=== PATIENT | male | born 1980 | race Caucasian/White ===

== ENCOUNTER 2019-10-05 14:56 | Emergency (ER) | payer SELFPAY ==
[2019-10-05] MEDS ORDERED: NORMAL SALINE 1000 ML 1,000 ML IV ONE ×2 (15:38→17:51)
[2019-10-05] MEDS ORDERED: ONDANSETRON HCL INJ/PF 4 MG/2 ML SDV IV ONE (15:38)
[2019-10-05] MEDS ORDERED: METOCLOPRAMIDE HCL ORAL SOLN 10 MG/10 ML UDCUP PO ONE (15:39)
[2019-10-05] MEDS ORDERED: MAG HYDROX/AL HYDROX/SIMETH SUSP 30 ML UDCUP PO ONE (15:39)
[2019-10-05] MEDS ORDERED: LIDOCAINE 2% VISCOUS SOLN 20 ML UDCUP PO ONE (15:39)
--- NOTE | 2019-10-05 15:39 | ER Document Report ---
ED Medical Screen (RME) - General Chief Complaint: Abdominal Pain Stated Complaint: ABDOMINAL PAIN Time Seen by Provider: 10/05/19 15:32 Notes: Patient is a 39-year-old male who presents emergency department with a chief complaint of epigastric pain. Patient reports he has had severe epigastric pain for the past few days. Patient reports every time he attempts to drink he does make himself vomit as this did provide some brief relief. Patient reports he attempted to go to [facility] today for detox but they sent him over here for medical clearance. They are holding a bed for him. Patient reports he has been drinking about 1/5 of liquor daily for the past few months. Patient reports his last drink was on Saturday. Patient reports he also has been using meth. Patient reports his last use was which at this point he did smoke it. Patient reports he does have a history of IV drug use which was about 1 month ago and when she injected meth. Patient denies fever. Patient reports unable to keep any liquids down due to the severe pain. Past Medical History - Social History Frequency of alcohol use: Heavy Drug Abuse: Marijuana Physical Exam - Abdominal Tenderness: Tender - epigastric tenderness Course - Re-evaluation Re-evalutation: 10/05/19 15:38 I have greeted and performed a rapid initial assessment of this patient. A comprehensive ED assessment and evaluation of the patient, analysis of test results and completion of the medical decision making process will be conducted by additional ED providers.
[2019-10-05 16:16] LABS: APPEARANCE,URINE CLOUDY; BILIRUBIN,URINE SMALL (NEGATIVE); COLOR,URINE AMBER; GLUCOSE, URINE NEGATIVE (NEGATIVE); KETONES,URINE NEGATIVE (NEGATIVE); LEUKOCYTE ESTERASE,URINE NEGATIVE (NEGATIVE); NITRITE,URINE NEGATIVE (NEGATIVE); PROTEIN,URINE 100 mg/dL (NEGATIVE); URINE SPECIFIC GRAVITY 1.026
--- NOTE | 2019-10-05 16:17 | ER Document Report ---
ED General - General Chief Complaint: Abdominal Pain Stated Complaint: ABDOMINAL PAIN Time Seen by Provider: 10/05/19 15:32 - HPI Notes: Patient is a 39-year-old male with a longstanding history of substance abuse, who presents to the emergency department for evaluation of abdominal pain, nausea, vomiting. He states that he is trying to come off of alcohol and crystal meth. He states his last use of meth was on , he was injecting. He states his last alcohol was on Saturday. He was drinking heavily for several months. He states he has a pain in his epigastrium that he describes as "breath taking." He states he is not keeping down any fluids, has watery emesis just after ingesting any sort of fluids. He does not remember his last bowel movement. He states he is urinating, but not as much as he believes he should be. He is awaiting an inpatient bed at [facility], states they are holding a bed for him currently. He denies any suicidal or homicidal ideation. He denies any visual or auditory hallucination. He has no history of seizures from alcohol withdrawal. - Related Data Allergies/Adverse Reactions: amoxicillin Allergy (Verified 10/05/19 16:00) Penicillins Allergy (Verified 10/05/19 16:00) Past Medical History - General Information source: Patient - Social History Smoking Status: Current Every Day Smoker Frequency of alcohol use: Heavy Drug Abuse: Marijuana, Methamphetamine Family History: Reviewed & Not Pertinent Patient has suicidal ideation: No Patient has homicidal ideation: No - Medical History Medical History: Other - History of blood transfusion status post right wrist laceration Review of Systems - Review of Systems Constitutional: No symptoms reported EENT: No symptoms reported Cardiovascular: No symptoms reported Respiratory: No symptoms reported Gastrointestinal: See HPI Genitourinary: No symptoms reported Musculoskeletal: No symptoms reported Skin: No symptoms reported Neurological/Psychological: No symptoms reported Physical Exam - Vital signs Vitals: Temp Pulse Resp BP Pulse Ox 97.9 F 84 16 138/94 H 98 10/05/19 16:12 10/05/19 16:12 10/05/19 16:12 10/05/19 16:12 10/05/19 16:12 - Notes Notes: This is a 39-year-old male who appears much older than his stated age, in no acute distress. Vital signs reviewed, please refer to chart. Head is normocephalic, atraumatic. Pupils equal round, reactive to light. Neck is supple without meningismus. Heart is regular rate and rhythm. Lungs are clear to auscultation bilaterally. Abdomen is soft, mildly tender in the epigastrium without rebound or guarding, normoactive bowel sounds throughout. Extremities without cyanosis, clubbing. Posterior calves are nontender. Peripheral pulses are equal. Skin is warm and dry. Patient is awake, alert, neurological exam is nonfocal. Course - Re-evaluation Re-evalutation: 10/05/19 16:16 Patient presents emergency department for evaluation. He is trying to come off of alcohol and methamphetamines. At this point he is several days since his last drink. He is not having any hallucinations, no tremor, no other significant disturbances that I can appreciate at this time. We will treat him symptomatically, obtain laboratory investigations for medical clearance. We will continue to monitor. 10/05/19 21:48 Patient's laboratory investigations came back and he was continuing to have symptoms. He was given IV Phenergan with significant relief. At this point, patient's laboratory vesication's are still abnormal, likely from dehydration, but have improved significantly. The patient feels well enough to be discharged back to [place]. I will send him home with some Zofran. I explained to him that his labs would need to be rechecked, [facility]. Any worsening of his symptoms should prompt him to return immediately. He voiced understanding of his discharge. - Vital Signs Vital signs: Temp Pulse Resp BP Pulse Ox 98.9 F 77 18 136/64 H 99 10/05/19 21:08 10/05/19 21:08 10/05/19 21:08 10/05/19 21:08 10/05/19 21:08 - Laboratory Result Diagrams: 10/05/19 16:35 10/05/19 19:43 Laboratory results interpreted by me: 10/05/19 10/05/19 10/05/19 15:57 16:35 19:43 Sodium 133.7 L 134.4 L Chloride 89 L 94 L BUN 40 H 39 H Creatinine 2.33 H 1.87 H Est GFR ( Amer) 38 L 49 L Est GFR (MDRD) Non-Af 31 L 40 L Calcium 11.0 H Total Protein 9.5 H Albumin 5.7 H Urine Protein 100 H Urine Bilirubin SMALL H Urine Urobilinogen 2.0 H Discharge - Discharge Clinical Impression: Dehydration, Abnormal renal function Nausea and vomiting Qualifiers: Vomiting type: unspecified Vomiting Intractability: non-intractable Qualified Code(s): R11.2 - Nausea with vomiting, unspecified Condition: Stable Disposition: OTHER Instructions: Abdominal Pain ([facility]), Dehydration ([facility]), Kidney Function Abnormality ([facility]), Vomiting ([facility]) Additional Instructions: Stay hydrated with small, frequent sips of fluids. Zofran as needed for nausea. Your kidney function was abnormal, likely secondary to dehydration. Please have this checked in follow-up. If you develop increased pain, or any other new or concerning symptoms, please return immediately to the emergency department for evaluation.
[2019-10-05 16:37] LABS: URINE BARBITURATES SCREEN NEGATIVE; URINE BENZODIAZEPINES SCREEN NEGATIVE; URINE COCAINE SCREEN NEGATIVE; URINE METHADONE SCREEN NEGATIVE; URINE PHENCYCLIDINE SCREEN NEGATIVE
[2019-10-05 16:46] LABS: URINE MARIJUANA (THC) SCREEN UNCONFIRMED POSITIVE
[2019-10-05 16:57] LABS: ABSOLUTE BASOPHILS # (AUTO) 0.1 10^3/uL (0.0-0.2); ABSOLUTE LYMPHOCYTES (AUTO) 1.7 10^3/uL (0.5-4.7); ABSOLUTE NEUT (AUTO) 6.5 10^3/uL (1.7-8.2); BASOPHILS % (AUTO) 0.5 % (0-2); EOSINOPHILS % (AUTO) 0.1 % (0-6); HEMATOCRIT 46.2 % (37.9-51.0); HEMOGLOBIN 16.5 g/dL (13.5-17.0); LYMPHOCYTES % (AUTO) 17.9 % (13-45); MEAN CORPUSCULAR HGB CONC 35.8 g/dL (32.0-36.0); MEAN CORPUSCULAR VOLUME 92 fl (80-97); MONOCYTES % (AUTO) 11.1 % (3-13); PLATELET COUNT 388 10^3/uL (150-450); RED BLOOD COUNT 5.01 10^6/uL (4.35-5.55); RED CELL DISTRIBUTION WIDTH 13.5 % (11.5-14.0); SEGMENTED NEUTROPHILS % (AUTO) 70.4 % (42-78); TOTAL CELLS COUNTED % (AUTO) 100 %; WHITE BLOOD COUNT 9.3 10^3/uL (4.0-10.5)
[2019-10-05 17:17] LABS: ALBUMIN 5.7 g/dL (3.5-5.0); ALKALINE PHOSPHATASE 95 U/L (38-126); ANION GAP 18 (5-19); ASPARTATE AMINO TRANSFERASE 22 U/L (17-59); BILIRUBIN,DIRECT 0.3 mg/dL (0.0-0.4); BILIRUBIN,TOTAL 0.8 mg/dL (0.2-1.3); BLOOD UREA NITROGEN 40 mg/dL (7-20); CARBON DIOXIDE 27 mmol/L (22-30); CHLORIDE 89 mmol/L (98-107); GLUCOSE 109 mg/dL (75-110); POTASSIUM 4.1 mmol/L (3.6-5.0); TOTAL PROTEIN 9.5 g/dL (6.3-8.2)
[2019-10-05 17:18] LABS: ALCOHOL < 10 mg/dL (NONE DETECTED)
[2019-10-05] MEDS ORDERED: NORMAL SALINE 500 ML IV ONE (19:53)
[2019-10-05] MEDS ORDERED: PROMETHAZINE HCL INJ 25 MG/1 ML VIAL IV ONE (19:53)
[2019-10-05 20:12] LABS: ANION GAP 10 (5-19); BLOOD UREA NITROGEN 39 mg/dL (7-20); CALCIUM 9.5 mg/dL (8.4-10.2); CARBON DIOXIDE 30 mmol/L (22-30); CHLORIDE 94 mmol/L (98-107); GLUCOSE 100 mg/dL (75-110); POTASSIUM 4.5 mmol/L (3.6-5.0)
[2019-10-05] MEDS ORDERED: ONDANSETRON ODT 4 MG TAB (6 TAB/ER DISP) PO PRN (21:49)
[2019-10-05 23:12] VITALS: BP 121/66
== END 2019-10-05 22:58 | disposition other institution (70) ==
LOC: ER 14:56
DX: R11.2 Nausea with vomiting, unspecified (principal); E86.0 Dehydration; R10.13 Epigastric pain; R10.816 Epigastric abdominal tenderness; F15.10 Other stimulant abuse, uncomplicated; F12.10 Cannabis abuse, uncomplicated; F17.200 Nicotine dependence, unspecified, uncomplicated; R94.4 Abnormal results of kidney function studies; Z88.0 Allergy status to penicillin
CPT/HCPCS: 99284; 96361; 96374; 96375; 36415; 80307 ×2; 83690; 85025; 80053; 81001; J3490; J2550; J2405; J7030; J7040

== ENCOUNTER 2020-04-15 01:53 | Emergency (ER) | payer SELFPAY ==
[2020-04-15 02:31] LABS: ABSOLUTE EOSINOPHILS # (AUTO) 0.2 10^3/uL (0.0-0.6); ABSOLUTE LYMPHOCYTES (AUTO) 2.1 10^3/uL (0.5-4.7); ABSOLUTE MONOCYTES (AUTO) 0.8 10^3/uL (0.1-1.4); ABSOLUTE NEUT (AUTO) 6.4 10^3/uL (1.7-8.2); BASOPHILS % (AUTO) 0.2 % (0-2); EOSINOPHILS % (AUTO) 1.9 % (0-6); HEMATOCRIT 38.3 % (37.9-51.0); HEMOGLOBIN 13.5 g/dL (13.5-17.0); LYMPHOCYTES % (AUTO) 22.1 % (13-45); MEAN CORPUSCULAR HEMOGLOBIN 32.9 pg (27.0-33.4); MEAN CORPUSCULAR HGB CONC 35.1 g/dL (32.0-36.0); MEAN CORPUSCULAR VOLUME 94 fl (80-97); MONOCYTES % (AUTO) 8.3 % (3-13); PLATELET COUNT 333 10^3/uL (150-450); RED BLOOD COUNT 4.09 10^6/uL (4.35-5.55); RED CELL DISTRIBUTION WIDTH 13.8 % (11.5-14.0); SEGMENTED NEUTROPHILS % (AUTO) 67.5 % (42-78); TOTAL CELLS COUNTED % (AUTO) 100 %; WHITE BLOOD COUNT 9.5 10^3/uL (4.0-10.5)
[2020-04-15 02:52] LABS: ALBUMIN 4.6 g/dL (3.5-5.0); ALKALINE PHOSPHATASE 76 U/L (38-126); ANION GAP 12 (5-19); ASPARTATE AMINO TRANSFERASE 30 U/L (17-59); BILIRUBIN,TOTAL 0.2 mg/dL (0.2-1.3); BLOOD UREA NITROGEN 18 mg/dL (7-20); CALCIUM 9.8 mg/dL (8.4-10.2); CARBON DIOXIDE 23 mmol/L (22-30); CHLORIDE 107 mmol/L (98-107); GLUCOSE 111 mg/dL (75-110); POTASSIUM 4.2 mmol/L (3.6-5.0); TOTAL PROTEIN 7.1 g/dL (6.3-8.2)
[2020-04-15 02:59] LABS: APPEARANCE,URINE CLEAR; BILIRUBIN,URINE NEGATIVE (NEGATIVE); COLOR,URINE STRAW; GLUCOSE, URINE NEGATIVE (NEGATIVE); KETONES,URINE NEGATIVE (NEGATIVE); LEUKOCYTE ESTERASE,URINE NEGATIVE (NEGATIVE); NITRITE,URINE NEGATIVE (NEGATIVE); PROTEIN,URINE NEGATIVE (NEGATIVE); URINE SPECIFIC GRAVITY 1.005; UROBILINOGEN,URINE NEGATIVE mg/dL (<2.0)
[2020-04-15] MEDS ORDERED: MAG HYDROX/AL HYDROX/SIMETH SUSP 30 ML UDCUP PO ONE ×2 (07:38→10:14)
[2020-04-15] MEDS ORDERED: LIDOCAINE 2% VISCOUS SOLN 15 ML UDCUP PO ONE ×2 (07:38→10:14)
--- NOTE | 2020-04-15 08:15 | ER Document Report ---
Entered by PURVI GUZMAN SCRIBE 04/15/20 0730 Acting as scribe for:GERALDO DODGE MD ED GI/ - General Chief Complaint: Epigastric Pain Stated Complaint: ABDOMINAL PAIN Time Seen by Provider: 04/15/20 07:28 Mode of Arrival: Ambulatory Information source: Patient Notes: This 40 year old male patient presents to the emergency department today with complaints of abdominal pain for the last three days. Patient states that he has been seen in the past for similar pain and he got significant relief with a GI cocktail. Patient does mention that he had dark stool last night. Patient is an alcoholic but denies a history of bleeding ulcers or vomiting blood. TRAVEL OUTSIDE OF THE [place] IN LAST 30 DAYS: No - Related Data Allergies/Adverse Reactions: amoxicillin Allergy (Verified 10/05/19 16:00) Penicillins Allergy (Verified 10/05/19 16:00) Past Medical History - General Information source: Patient - Social History Smoking Status: Current Every Day Smoker Cigarette use (# per day): Yes - 1/2 Frequency of alcohol use: Heavy Drug Abuse: Other - Hx of prior marijuana and methamphetamine abuse, states he has not used recently Lives with: Family Family History: Reviewed & Not Pertinent Patient has homicidal ideation: No - Medical History Medical History: Negative Surgical Hx: Negative Review of Systems - Review of Systems Constitutional: No symptoms reported EENT: No symptoms reported Cardiovascular: No symptoms reported Respiratory: No symptoms reported Gastrointestinal: See HPI, Abdominal pain, Black stools Genitourinary: No symptoms reported Male Genitourinary: No symptoms reported Musculoskeletal: No symptoms reported Skin: No symptoms reported Hematologic/Lymphatic: No symptoms reported Neurological/Psychological: No symptoms reported -: Yes All other systems reviewed and negative Physical Exam - Vital signs Vitals: Temp Pulse Resp BP Pulse Ox 98.6 F 127 H 16 132/82 H 98 04/15/20 02:04 04/15/20 02:04 04/15/20 02:04 04/15/20 02:04 04/15/20 02:04 - Notes Notes: Physical Exam: General: Alert, appears well. HEENT: Normocephalic. Atraumatic. PERRL. Extraocular movements intact. Oropharynx clear. Neck: Supple. Non-tender. Respiratory: No respiratory distress. Clear and equal breath sounds bilaterally. Cardiovascular: Regular rate and rhythm. Abdominal: Epigastric tenderness with palpation. No distension. Normal Bowel Sounds. Back: No gross abnormalities. Extremities: Moves all four extremities. Upper extremities: Normal inspection. Normal ROM. Lower extremities: Normal inspection. No edema. Normal ROM. Neurological: Normal cognition. AAOx4. Normal speech. Psychological: Normal affect. Normal Mood. Skin: Warm. Dry. Normal color. Course - Re-evaluation Re-evalutation: 04/15/20 10:15 Epigastric discomfort resolved after the GI cocktail. At this point there is a little bit of discomfort beginning to return. Patient is requesting something to eat. He will be given another GI cocktail, Protonix p.o., and see if the nurses can find him something to eat. - Vital Signs Vital signs: Temp Pulse Resp BP Pulse Ox 97.8 F 98 16 111/72 97 04/15/20 06:44 04/15/20 06:44 04/15/20 06:44 04/15/20 06:44 04/15/20 06:44 - Laboratory Result Diagrams: 04/15/20 02:20 04/15/20 02:20 Laboratory results interpreted by me: 04/15/20 04/15/20 04/15/20 02:20 02:20 02:40 RBC 4.09 L Glucose 111 H Urine Blood SMALL H Discharge - Discharge Clinical Impression: Gastroesophageal reflux disease Qualifiers: Esophagitis presence: esophagitis presence not specified Qualified Code(s): K21.9 - Gastro-esophageal reflux disease without esophagitis Gastritis Qualifiers: Gastritis type: alcoholic Chronicity: unspecified Gastritis bleeding: without bleeding Qualified Code(s): K29.20 - Alcoholic gastritis without bleeding Condition: Stable Disposition: HOME, SELF-CARE Additional Instructions: Gastritis You have an inflammation of the stomach called gastritis. This commonly causes upper abdominal pain, nausea, and vomiting. In severe cases, bleeding of the stomach lining can occur. Gastritis can be caused by bacteria or viruses, alcohol, or stomach-irritating drugs. Begin with sips of clear liquids. Take increasing amounts of fluid over the first 24 hours. Then start small amounts of bland foods (such as dry toast, applesauce, mashed potato). Gradually resume your usual diet. You should take antacids every two hours until the pain has subsided. Acid-suppressing drugs may be prescribed as well. Avoid aspirin, caffeine, tobacco, and alcohol. If the abdominal pain worsens, or there is evidence of major bleeding in the stomach (such as black, tarry stool, bloody or black vomit, or lightheadedness), you should return immediately. Call the doctor if you aren't improved in 24 to 36 hours. Reflux Disease (GERD) Gastro-Esophageal Reflux Disease (GERD) is caused by stomach acid refluxing back up into the esophagus. The valve at the end of the esophagus may be weak. This is common in persons with a hiatal hernia. GERD symptoms can include indigestion, chest pain, heartburn, or food "sticking." Certain foods, alcohol, and aspirin can make GERD worse. Treatment depends on the severity. Usually, antacids or acid-suppressing medicines are used. When the esophagus is acutely inflamed, the physician will often prescribe membrane-protective drugs such as Carafate. Some patients benefit from medication such as Reglan that tightens the valve at the top of the stomach. Avoid those foods that bring on your symptoms. For many people, these foods are coffee, chocolate, onions, garlic, and carbonated drinks. Don't use alcohol, aspirin, caffeine, or tobacco. Don't eat late at night -- within 4 hours of bedtime. Don't over-eat. If necessary, elevate the head of your bed about 4 inches so that stomach acid will not roll up into your esophagus. Call the doctor if you develop severe chest pain, inability to swallow fluids, fever, or worsening symptoms. Take omeprazole 20 mg also known as Prilosec OTC once daily for the next 2 weeks. Eat a bland diet. Stop drinking alcohol. Follow-up with a local primary care provider if not improving. RETURN TO THE EMERGENCY ROOM IF ANY NEW OR WORSENING SYMPTOMS. I personally performed the services described in the documentation, reviewed and edited the documentation which was dictated to the scribe in my presence, and it accurately records my words and actions.
[2020-04-15] MEDS ORDERED: PANTOPRAZOLE SODIUM 20 MG TABLET.DR PO ONE (10:14)
[2020-04-15 10:35] VITALS: BP 141/75
== END 2020-04-15 10:34 | disposition home or self-care (01) ==
LOC: ER 01:53
DX: K29.20 Alcoholic gastritis without bleeding (principal); K21.9 Gastro-esophageal reflux disease without esophagitis; R10.13 Epigastric pain; R10.9 Unspecified abdominal pain; R19.5 Other fecal abnormalities; Z88.0 Allergy status to penicillin; F17.210 Nicotine dependence, cigarettes, uncomplicated
CPT/HCPCS: 99284; 36415; 83690; 85025; 80053; 81001; J3490 ×2

== ENCOUNTER 2020-04-16 01:23 | Emergency (ER) | payer SELFPAY ==
[2020-04-16] MEDS ORDERED: LIDOCAINE 2% VISCOUS SOLN 15 ML UDCUP PO ONE (07:06)
[2020-04-16] MEDS ORDERED: PANTOPRAZOLE SODIUM 20 MG TABLET.DR PO ONE (07:06)
[2020-04-16] MEDS ORDERED: MAG HYDROX/AL HYDROX/SIMETH SUSP 30 ML UDCUP PO ONE (07:06)
--- NOTE | 2020-04-16 07:53 | ER Document Report ---
Entered by PURVI GUZMAN SCRIBE 04/16/20 0706 Acting as scribe for:GERALDO DODGE MD ED GI/ - General Chief Complaint: Abdominal Pain Stated Complaint: ABDOMINAL PAIN Time Seen by Provider: 04/16/20 06:53 Mode of Arrival: Ambulatory Information source: Patient, [facility] Records Notes: 42-year-old homeless man with long history of alcohol and substance abuse. Seen emergency room yesterday morning with reflux and heartburn. Returns today with the same complaint, and requesting that he be [facility]. He is requesting commitment to [facility] because he is homeless and wants somewhere to stay. He is not suicidal or homicidal. He does admit that his mother lives in [place] but refuses to allow him to come back to the home. TRAVEL OUTSIDE OF THE [place] IN LAST 30 DAYS: No - Related Data Allergies/Adverse Reactions: amoxicillin Allergy (Verified 10/05/19 16:00) Penicillins Allergy (Verified 10/05/19 16:00) Past Medical History - General Information source: Patient - Social History Smoking Status: Current Every Day Smoker Cigarette use (# per day): Yes Chew tobacco use (# tins/day): No Frequency of alcohol use: Heavy Drug Abuse: Cocaine, Heroin, Marijuana, Methamphetamine Lives with: Homeless Family History: Reviewed & Not Pertinent GI Medical History: Reports: Hx Gastroesophageal Reflux Disease Surgical Hx: Negative Review of Systems - Review of Systems Constitutional: See HPI, Other - homeless EENT: No symptoms reported Cardiovascular: No symptoms reported Respiratory: No symptoms reported Gastrointestinal: See HPI, Abdominal pain Genitourinary: No symptoms reported Male Genitourinary: No symptoms reported Musculoskeletal: No symptoms reported Skin: No symptoms reported Hematologic/Lymphatic: No symptoms reported Neurological/Psychological: No symptoms reported -: Yes All other systems reviewed and negative Physical Exam - Vital signs Vitals: Temp Pulse Resp BP Pulse Ox 97.8 F 103 H 16 123/93 H 99 04/16/20 01:29 04/16/20 01:29 04/16/20 01:29 04/16/20 01:29 04/16/20 01:29 - Notes Notes: Physical Exam: General: Alert, appears well. HEENT: Normocephalic. Atraumatic. PERRL. Extraocular movements intact. Oropharynx clear. Neck: Supple. Non-tender. Respiratory: No respiratory distress. Clear and equal breath sounds bilaterally. Cardiovascular: Regular rate and rhythm. Abdominal: Minimal epigastric tenderness to palpation. No distension. Normal Bowel Sounds. Back: No gross abnormalities. Extremities: Moves all four extremities. Upper extremities: Normal inspection. Normal ROM. Lower extremities: Normal inspection. No edema. Normal ROM. Neurological: Normal cognition. AAOx4. Normal speech. Psychological: Normal affect. Normal Mood. Skin: Warm. Dry. Normal color. Course - Re-evaluation Re-evalutation: 04/16/20 07:54 Patient's epigastric pain is better after the GI cocktail. - Vital Signs Vital signs: Temp Pulse Resp BP Pulse Ox 97.9 F 73 16 116/79 98 04/16/20 06:07 04/16/20 06:07 04/16/20 06:07 04/16/20 06:07 04/16/20 06:07 Discharge - Discharge Clinical Impression: Homeless single person Gastroesophageal reflux disease Qualifiers: Esophagitis presence: esophagitis presence not specified Qualified Code(s): K21.9 - Gastro-esophageal reflux disease without esophagitis Gastritis Qualifiers: Gastritis type: alcoholic Chronicity: unspecified Gastritis bleeding: without bleeding Qualified Code(s): K29.20 - Alcoholic gastritis without bleeding Condition: Stable Disposition: HOME, SELF-CARE Additional Instructions: Reflux Disease (GERD) Gastro-Esophageal Reflux Disease (GERD) is caused by stomach acid refluxing back up into the esophagus. The valve at the end of the esophagus may be weak. This is common in persons with a hiatal hernia. GERD symptoms can include indigestion, chest pain, heartburn, or food "sticking." Certain foods, alcohol, and aspirin can make GERD worse. Treatment depends on the severity. Usually, antacids or acid-suppressing medicines are used. When the esophagus is acutely inflamed, the physician will often prescribe membrane-protective drugs such as Carafate. Some patients benefit from medication such as Reglan that tightens the valve at the top of the stomach. Avoid those foods that bring on your symptoms. For many people, these foods are coffee, chocolate, onions, garlic, and carbonated drinks. Don't use alcohol, aspirin, caffeine, or tobacco. Don't eat late at night -- within 4 hours of bedtime. Don't over-eat. If necessary, elevate the head of your bed about 4 inches so that stomach acid will not roll up into your esophagus. Call the doctor if you develop severe chest pain, inability to swallow fluids, fever, or worsening symptoms. Take Prilosec OTC once daily to reduce acid production in your stomach. Take antacids between meals and at bedtime. Follow-up with a local medical doctor if not improving. Follow-up with [facility] or [facility] for assistance with substance and alcohol abuse issues. RETURN TO THE EMERGENCY ROOM IF ANY NEW OR WORSENING SYMPTOMS. I personally performed the services described in the documentation, reviewed and edited the documentation which was dictated to the scribe in my presence, and it accurately records my words and actions.
[2020-04-16 08:19] VITALS: BP 112/68
== END 2020-04-16 08:18 | disposition home or self-care (01) ==
LOC: ER 01:23
DX: K21.9 Gastro-esophageal reflux disease without esophagitis (principal); K29.20 Alcoholic gastritis without bleeding; Z59.0 Homelessness; F17.210 Nicotine dependence, cigarettes, uncomplicated; F14.10 Cocaine abuse, uncomplicated; F11.10 Opioid abuse, uncomplicated; F12.10 Cannabis abuse, uncomplicated; F15.10 Other stimulant abuse, uncomplicated; Z88.0 Allergy status to penicillin
CPT/HCPCS: 99283; J3490 ×2

== ENCOUNTER 2020-04-18 15:44 | Emergency (ER) | payer SELFPAY ==
[2020-04-18 16:19] VITALS: BP 116/86
== END 2020-04-18 16:53 | disposition left against medical advice (07) ==
LOC: ER 15:44
DX: Z53.21 Procedure and treatment not carried out due to patient leaving prior to being seen by health care provider (principal); R41.82 Altered mental status, unspecified